=== PATIENT | female | born 1965 | race Caucasian/White ===

== ENCOUNTER 2017-03-20 10:34 | Emergency (ER) | payer OTHER ==
[~2017-03-20] VITALS: Ht 165.1 cm; Wt 124.0 kg
[~2017-03-20 10:34] MED LIST: AMPYRA10 MG PO; BACLOFEN10 MG PO; BANOPHEN50 MG PO; BISACODYL5 MG PO; BUSPAR7.5 MG PO; CELEXA10 MG PO; CLONAZEPAM0.5 MG PO; CYMBALTA30 MG PO; DITROPAN5 MG PO; DOCUSATE SODIU100 MG PO; DULCOLAX5 MG PO; GABAPENTIN100 M1 PO; GABAPENTIN600 MG PO; GLYCERIN ADULT PR; HYDROCODON-ACE1 EACH PO; KEFLEX500 MG PO; KETOCONAZOLE60 GM TP; KLONOPIN0.5 M1 PO; LANTUS 3 M100 UNITS/ SC; LANTUS 3 M100 UNITS1 SC; LANTUS100 UNIT/1 SQ; LASIX20 MG PO; LEVEMIR100 UNIT/2 SC; LIDOCAINE700 MG TD; LISINOPRIL20 MG PO; LOVENOX40 MG/0.4 SC; MILK OF MAGN PO; MIRALAX255 GM PO; MORPHINE SULFAT30 M2 PO; MYRBETRIQ25 MG PO; MYRBETRIQ50 MG PO; Metamucil Packet PO; NEURONTIN300 MG PO; NOVOLOG 10100 UNITS/ SC; NOVOLOG PE100 UNITS/ SC; NUVIGIL150 MG PO; OXYBUTYNIN CHLOR5 MG PO; POLYETHYLENE G255 GM PO; POLYETHYLENE GL17 GM PO; PRAVACHOL40 MG PO; PRAVASTATIN SOD40 MG PO; PREDNISONE10 MG PO; PROTONIX40 MG PO; REBIF44 MCG/0.5 SC; SENNA PLUS TAB1 EACH PO; SENNA8.6 MG PO; SENOKOT S,PE1 TABLET PO; THERAGRAN1 TABLET PO; TIZANIDINE HCL2 MG PO; TIZANIDINE HCL4 MG PO; TRAMADOL HCL50 MG PO; TYLENOL REGULA325 MG PO; TYSABRI300 MG/15 IV; VICODIN PO; VITAMIN D-3 401 EACH PO; ZANTAC150 MG PO; ZEASORB POWDE70.9 GM TP; ZESTRIL,PRINIVI20 MG PO; ZOLPIDEM TARTRAT5 MG PO; [UNRECOGNIZED DRUG - OTHER]; [UNRECOGNIZED DRUG - OTHER] SQ; mybetriq
[2017-03-20 11:41] LABS: HEMATOCRIT 43.4 % (36.0-46.0); MCH 28.7 PG (29.0-34.0); MCHC 32.3 G/DL (30.0-36.0); MCV 88.9 FL (83-99); MEAN PLAT.VOLUME 11.3 uM^3 (9.5-12.4); NRBC (%) 0.7 /100 WBC (0-0); PLATELET COUNT 159 K/uL (156-360); RBC DIS.WIDTH-CV 14.4 % (11.8-14.6); RBC DIS.WIDTH-SD 46.3 % (39-53); RED BLOOD COUNT 4.88 M/uL (3.80-5.20); WHITE BLOOD COUNT 10.9 K/uL (4.1-10.2)
[2017-03-20 12:38] LABS: CHLORIDE 105 mEq/L (99-109); POTASSIUM 4.9 mEq/L (3.7-5.4); SODIUM 140 mEq/L (136-147)
[2017-03-20 12:41] LABS: GLUCOSE 249 mg/dL (70-99)
[2017-03-20 12:42] LABS: ANION GAP 10 MEQ/L (2-14)
[2017-03-20 12:43] LABS: TOTAL BILIRUBIN 0.3 mg/dL (0.0-1.0)
[2017-03-20 12:44] LABS: ALKALINE PHOSPHATASE 87 IU/L (3-129); GFR ESTIMATE (CALCULATED) > 59 mL/min/
[2017-03-20 12:45] LABS: UREA NITROGEN (BUN) 11 mg/dL (9-23)
[2017-03-20 13:17] LABS: C-REACTIVE PROTEIN 6.7 MG/L (0-10); SAMPLE HEMOLYSIS CHECK 0; SAMPLE ICTERIC CHECK 0; SAMPLE LIPEMIA CHECK 0
[2017-03-20 15:35] VITALS: BP 125/80
== END 2017-03-20 15:36 | disposition home or self-care (01) ==
LOC: EME 10:34
PROVIDERS: Physician Assistant
DX: R53.1 Weakness (principal); G35 Multiple sclerosis; E11.9 Type 2 diabetes mellitus without complications; Z79.4 Long term (current) use of insulin; Z88.6 Allergy status to analgesic agent; Z88.8 Allergy status to other drugs, medicaments and biological substances
CPT/HCPCS: 80053; 81003; 85027; 86140; 99281; 99284; J2930; J7030

== ENCOUNTER 2017-03-25 15:55 | Inpatient (IN) | payer OTHER ==
[~2017-03-25] VITALS: Ht 165.1 cm; Wt 121.4 kg
[2017-03-25 17:03] LABS: EOSINOPHIL (%) 3.7 % (0-5); EOSINOPHIL COUNT 0.5 K/uL (0-0.3); HEMATOCRIT 43.6 % (36.0-46.0); IMMATURE GRANULOCYTE (%) 1.1 % (0.0-0.7); IMMATURE GRANULOCYTE COUNT 0.2 K/uL; INSTRUMENT ABS NEUTROPHIL CT 7.8 K/uL; LYMPHOCYTE COUNT 4.6 K/uL (1.0-2.8); MCV 87.9 FL (83-99); MEAN PLAT.VOLUME 11.3 uM^3 (9.5-12.4); MONOCYTE (%) 5.3 % (3-12); MONOCYTE COUNT 0.7 K/uL (0-0.8); NEUTROPHIL (%) 56.1 % (45-76); NEUTROPHIL COUNT 7.8 K/uL (1.8-6.4); NRBC (%) 0.8 /100 WBC (0-0); PLATELET COUNT 164 K/uL (156-360); RBC DIS.WIDTH-CV 14.2 % (11.8-14.6); RBC DIS.WIDTH-SD 45.5 % (39-53); RED BLOOD COUNT 4.96 M/uL (3.80-5.20); WHITE BLOOD COUNT 13.9 K/uL (4.1-10.2)
[2017-03-25 17:11] LABS: CHLORIDE 103 mEq/L (99-109); POTASSIUM 4.3 mEq/L (3.7-5.4); SODIUM 139 mEq/L (136-147)
[2017-03-25 17:13] LABS: GLUCOSE 175 mg/dL (70-99)
[2017-03-25 17:14] LABS: ANION GAP 9 MEQ/L (2-14)
[2017-03-25 17:17] LABS: GFR ESTIMATE (CALCULATED) > 59 mL/min/
[2017-03-25 17:18] LABS: UREA NITROGEN (BUN) 10 mg/dL (9-23)
[2017-03-25 17:23] LABS: TROP-I INTERPRETATION NEGATIVE; TROPONIN-I < 0.01 ng/mL (0.0-0.30)
[2017-03-25 17:56] LABS: ADD MIUA? YES; BILIRUBIN NEGATIVE; BLOOD NEGATIVE; COLOR YELLOW ((YELLOW)); GLUCOSE (STRIP) NEGATIVE; KETONES NEGATIVE; LEUKOCYTES NEGATIVE; NITRITE NEGATIVE; PROTEIN (STRIP) NEGATIVE; SPECIFIC GRAVITY 1.013 (1.000-1.030)
[2017-03-25 18:00] LABS: BACTERIA NONE SEEN /HPF; EPITHELIAL CELLS RARE /HPF; MUCUS 2+ /LPF; RED BLOOD CELLS 0-5 /HPF (0-5); UCUL ADDED? NO; WHITE BLOOD CELLS 0-5 /HPF (0-5)
[2017-03-25] MEDS ORDERED: ZANAFLEX4 M1 PO (21:51)
[2017-03-25] MEDS ORDERED: BACLOFEN20 MG PO (21:51)
[2017-03-25] MEDS ORDERED: ARYMO ER30 MG PO (21:52)
[2017-03-25] MEDS ORDERED: MIRALAX255 GM PO (21:54)
[2017-03-25] MEDS ORDERED: LANTUS 10100 UNITS/ SC (21:55)
[2017-03-25] MEDS ORDERED: ASPERCREME1 EACH TP (21:57)
[2017-03-25] MEDS ORDERED: ZYRTEC10 M3 PO (21:58)
[2017-03-25] MEDS ORDERED: IBUPROFEN800 MG PO (21:59)
[2017-03-25 22:53] VITALS: BP 146/63
[2017-03-25 23:39] LABS: POINT-OF-CARE METER ID UU13113700
[2017-03-26 03:38] VITALS: BP 147/67
[2017-03-26 08:32] LABS: POINT-OF-CARE METER ID UU13113831
[2017-03-26 08:37] VITALS: BP 133/61
[2017-03-26 11:15] VITALS: BP 125/64
[2017-03-26 14:03] LABS: POINT-OF-CARE METER ID UU13113831
[2017-03-26 16:00] VITALS: BP 121/56
[2017-03-26 18:16] LABS: POINT-OF-CARE METER ID UU13113700
[2017-03-26 19:30] VITALS: BP 140/66
[2017-03-26 21:07] LABS: POINT-OF-CARE METER ID UU13113831
[2017-03-27] VITALS (7 sets, daily range): BP systolic 129–176; BP diastolic 64–80
[2017-03-27 09:03] LABS: POINT-OF-CARE METER ID UU13113831
[2017-03-27 12:51] LABS: POINT-OF-CARE METER ID UU13113831
[2017-03-27 18:35] LABS: POINT-OF-CARE METER ID UU13113831
[2017-03-27 22:10] LABS: POINT-OF-CARE METER ID UU14162513
[2017-03-28 00:15] VITALS: BP 148/67
[2017-03-28 06:16] LABS: ANION GAP 10 MEQ/L (2-14); CHLORIDE 103 MEQ/L (99-109); GFR ESTIMATE (CALCULATED) > 59 mL/min/; POTASSIUM 4.1 MEQ/L (3.7-5.4); SAMPLE HEMOLYSIS CHECK 0; SAMPLE ICTERIC CHECK 0; SAMPLE LIPEMIA CHECK 0; SODIUM 138 MEQ/L (136-147); UREA NITROGEN (BUN) 15 mg/dL (9-23)
[2017-03-28 06:20] LABS: GLUCOSE 367 mg/dL (70-99)
[2017-03-28 07:07] LABS: POINT-OF-CARE METER ID UU13113831
[2017-03-28 08:00] VITALS: BP 160/72
[2017-03-28 12:21] VITALS: BP 185/81
[2017-03-28 16:00] VITALS: BP 183/76
[2017-03-28 17:40] LABS: POINT-OF-CARE METER ID UU13113831
[2017-03-28 19:00] VITALS: BP 126/76
[2017-03-28 20:59] LABS: POINT-OF-CARE METER ID UU13113831; POINT-OF-CARE USER ID 609231305
[2017-03-28 22:24] LABS: POINT-OF-CARE METER ID UU13113831
[2017-03-29 03:55] VITALS: BP 139/72
[2017-03-29 07:55] VITALS: BP 161/70
[2017-03-29 08:22] LABS: POINT-OF-CARE METER ID UU13113700
[2017-03-29] MEDS ORDERED: NICOTINE PATCH1 EAC2 TD (10:44)
[2017-03-29] MEDS ORDERED: ARYMO ER30 MG PO (10:44)
[2017-03-29] MEDS ORDERED: CLONAZEPAM0.5 MG PO (10:44)
[2017-03-29] MEDS ORDERED: PREDNISONE10 MG PO (10:44)
[2017-03-29 11:27] VITALS: BP 133/76
[2017-03-29 12:45] LABS: POINT-OF-CARE METER ID UU13113700
== END 2017-03-29 17:20 | DRG 59 ==
LOC: EME 15:55 → EDOF 21:09 → 5WEST 21:09 → EDOF 21:09 → 5WEST 22:21
PROVIDERS: Emergency Medicine; Hospitalist
DX: G35 Multiple sclerosis (principal); Z68.41 Body mass index [BMI] 40.0-44.9, adult; E11.65 Type 2 diabetes mellitus with hyperglycemia; I11.0 Hypertensive heart disease with heart failure; E66.01 Morbid (severe) obesity due to excess calories; I50.9 Heart failure, unspecified; F17.200 Nicotine dependence, unspecified, uncomplicated; E78.5 Hyperlipidemia, unspecified; M48.00 Spinal stenosis, site unspecified; R29.6 Repeated falls; G89.4 Chronic pain syndrome; N39.41 Urge incontinence; F12.90 Cannabis use, unspecified, uncomplicated; T38.0X5A Adverse effect of glucocorticoids and synthetic analogues, initial encounter; I25.10 Atherosclerotic heart disease of native coronary artery without angina pectoris; Z79.4 Long term (current) use of insulin; Z79.891 Long term (current) use of opiate analgesic; Z79.899 Other long term (current) drug therapy; Z96.612 Presence of left artificial shoulder joint; Z91.11 Patient's noncompliance with dietary regimen
CPT/HCPCS: 70450; 71010; 80048; 81003; 82948; 84484; 85025; 93005; 97530 GP; 99281; 99285; G0378; G8978 GP CM; G8979 GP CL; G8987 GO CM; G8988 GO CL; J1650; J1815; J2930; J7030; J7040; J7050

== ENCOUNTER 2017-12-29 17:00 | Inpatient (IN) | payer OTHER ==
[~2017-12-29] VITALS: Ht 165.1 cm; Wt 126.9 kg
[~2017-12-29 17:00] MED LIST changes: +ARYMO ER30 MG PO; +ASPERCREME1 EACH TP; +BACLOFEN20 MG PO; +IBUPROFEN800 MG PO; +LANTUS 10100 UNITS/ SC; +NICOTINE PATCH1 EAC2 TD; +ZANAFLEX4 M1 PO; +ZYRTEC10 M3 PO
[2017-12-29 17:50] LABS: HEMATOCRIT 44.9 % (36.0-46.0); HEMOGLOBIN 15.1 G/DL (11.9-15.5); MCHC 33.6 G/DL (30.0-36.0); MCV 92.2 FL (83-99); RBC DIS.WIDTH-SD 40.7 % (39-53); RED BLOOD COUNT 4.87 M/uL (3.80-5.20); WHITE BLOOD COUNT 6.9 K/uL (4.1-10.2)
[2017-12-29 17:56] LABS: PLATELET COUNT 90 K/uL (156-360)
[2017-12-29 18:01] LABS: CHLORIDE 104 mEq/L (99-109); POTASSIUM 3.9 mEq/L (3.7-5.4); SODIUM 143 mEq/L (136-147)
[2017-12-29 18:03] LABS: GLUCOSE 152 mg/dL (70-99)
[2017-12-29 18:06] LABS: CREATININE 0.7 mg/dL (0.6-1.3); GFR ESTIMATE (CALCULATED) > 59 mL/min/
[2017-12-29 18:07] LABS: UREA NITROGEN (BUN) 13 mg/dL (9-23)
[2017-12-29] MEDS ORDERED: VOLTAREN 1% GE100 GM TP (21:50)
[2017-12-29] MEDS ORDERED: OCREVUS300 MG/10 IV (21:51)
[2017-12-29] MEDS ORDERED: MYRBETRIQ50 MG PO (21:52)
[2017-12-29 22:16] LABS: THYROTROPIN (TSH) 7.3 MIU/L (0.4-5.5)
[2017-12-30 03:06] VITALS: BP 129/77
[2017-12-30 04:07] LABS: APPEARANCE CLEAR ((CLEAR)); BILIRUBIN NEGATIVE; BLOOD NEGATIVE; COLOR YELLOW ((YELLOW)); GLUCOSE (STRIP) NEGATIVE; KETONES NEGATIVE; LEUKOCYTES NEGATIVE; NITRITE NEGATIVE; PROTEIN (STRIP) NEGATIVE; SPECIFIC GRAVITY 1.019 (1.000-1.030); UCUL ADDED? NO
[2017-12-30 07:16] VITALS: BP 128/84
[2017-12-30 10:01] LABS: HEMATOCRIT 44.9 % (36.0-46.0); HEMOGLOBIN 15.2 G/DL (11.9-15.5); MCH 30.6 PG (29.0-34.0); MCHC 33.9 G/DL (30.0-36.0); MCV 90.3 FL (83-99); RBC DIS.WIDTH-CV 11.8 % (11.8-14.6); RBC DIS.WIDTH-SD 38.5 % (39-53); RED BLOOD COUNT 4.97 M/uL (3.80-5.20); WHITE BLOOD COUNT 6.6 K/uL (4.1-10.2)
[2017-12-30 10:05] LABS: PLATELET COUNT 186 K/uL (156-360)
[2017-12-30 10:54] LABS: CHLORIDE 103 MEQ/L (99-109); CREATININE 0.7 MG/DL (0.6-1.3); GFR ESTIMATE (CALCULATED) > 59 mL/min/; POTASSIUM 4.4 MEQ/L (3.7-5.4); SODIUM 138 MEQ/L (136-147); UREA NITROGEN (BUN) 14 mg/dL (9-23)
[2017-12-30 10:58] LABS: GLUCOSE 427 mg/dL (70-99)
[2017-12-30 12:06] VITALS: BP 126/80
[2017-12-30 15:14] VITALS: BP 122/57
[2017-12-31 00:05] VITALS: BP 150/67
[2017-12-31 07:02] LABS: HEMATOCRIT 39.7 % (36.0-46.0); MCH 29.7 PG (29.0-34.0); MCHC 33.2 G/DL (30.0-36.0); MCV 89.2 FL (83-99); PLATELET COUNT 163 K/uL (156-360); RBC DIS.WIDTH-CV 11.8 % (11.8-14.6); RBC DIS.WIDTH-SD 38.3 % (39-53); RED BLOOD COUNT 4.45 M/uL (3.80-5.20); WHITE BLOOD COUNT 11.7 K/uL (4.1-10.2)
[2017-12-31 07:03] LABS: HEMOGLOBIN 13.2 G/DL (11.9-15.5)
[2017-12-31 07:28] LABS: CHLORIDE 105 MEQ/L (99-109); CREATININE 0.6 MG/DL (0.6-1.3); GFR ESTIMATE (CALCULATED) > 59 mL/min/; GLUCOSE 337 mg/dL (70-99); SODIUM 140 MEQ/L (136-147); UREA NITROGEN (BUN) 17 mg/dL (9-23)
[2017-12-31 07:45] VITALS: BP 133/62
[2017-12-31 16:13] VITALS: BP 137/65
[2018-01-01] VITALS: BP 177/77
[2018-01-01 07:38] VITALS: BP 146/70
[2018-01-01 16:14] VITALS: BP 162/75
[2018-01-01 23:51] VITALS: BP 167/76
[2018-01-02 08:05] VITALS: BP 174/80
[2018-01-02] MEDS ORDERED: DOCUSATE SODIU100 MG PO (13:24)
[2018-01-02] MEDS ORDERED: MEDROL DOSEPAK4 MG PO (13:24)
[2018-01-02 16:00] VITALS: BP 173/83
== END 2018-01-02 16:11 | DRG 59 ==
LOC: EME 17:00 → EDOF 23:41 → 5SOUTH 23:41 → ENRESERV 23:42 → 5SOUTH 12-30 01:32 → ENPENDDIS 01-02 13:30 → 5SOUTH 01-02 16:11
PROVIDERS: Emergency Medicine; Hospitalist; Physician Assistant Medical
DX: G35 Multiple sclerosis (principal); F11.20 Opioid dependence, uncomplicated; E66.01 Morbid (severe) obesity due to excess calories; D69.6 Thrombocytopenia, unspecified; E03.9 Hypothyroidism, unspecified; K59.00 Constipation, unspecified; Z96.612 Presence of left artificial shoulder joint; F17.210 Nicotine dependence, cigarettes, uncomplicated; E78.5 Hyperlipidemia, unspecified; F12.90 Cannabis use, unspecified, uncomplicated; S31.000A Unspecified open wound of lower back and pelvis without penetration into retroperitoneum, initial encounter; R32 Unspecified urinary incontinence; I25.10 Atherosclerotic heart disease of native coronary artery without angina pectoris; I50.9 Heart failure, unspecified; I11.0 Hypertensive heart disease with heart failure; Z68.42 Body mass index [BMI] 45.0-49.9, adult; M48.00 Spinal stenosis, site unspecified; G89.29 Other chronic pain; E11.9 Type 2 diabetes mellitus without complications; M50.20 Other cervical disc displacement, unspecified cervical region; F41.9 Anxiety disorder, unspecified
CPT/HCPCS: 80048; 81003; 82948; 84439; 84443; 85027; 97530 GO; 97530 GP; 99281; 99285; J1815; J2930; J7030; J7040; J7050

== ENCOUNTER 2018-03-24 14:24 | Emergency (ER) | payer OTHER ==
[~2018-03-24] VITALS: Ht 165.1 cm; Wt 149.4 kg
[~2018-03-24 14:24] MED LIST changes: +MEDROL DOSEPAK4 MG PO; +OCREVUS300 MG/10 IV; +VOLTAREN 1% GE100 GM TP
[2018-03-24 14:37] VITALS: BP 125/73
[2018-03-24 15:08] LABS: HEMATOCRIT 36.4 % (36.0-46.0); HEMOGLOBIN 12.1 G/DL (11.9-15.5); MCH 30.8 PG (29.0-34.0); MCHC 33.2 G/DL (30.0-36.0); MCV 92.6 FL (83-99); PLATELET COUNT 146 K/uL (156-360); RBC DIS.WIDTH-CV 13.7 % (11.8-14.6); RBC DIS.WIDTH-SD 46.3 % (39-53); RED BLOOD COUNT 3.93 M/uL (3.80-5.20); WHITE BLOOD COUNT 7.1 K/uL (4.1-10.2)
[2018-03-24 15:19] LABS: CHLORIDE 106 mEq/L (99-109); POTASSIUM 4.2 mEq/L (3.7-5.4); SODIUM 141 mEq/L (136-147)
[2018-03-24 15:20] LABS: GLUCOSE 208 mg/dL (70-99)
[2018-03-24 15:24] LABS: CREATININE 0.8 mg/dL (0.6-1.3); GFR ESTIMATE (CALCULATED) > 59 mL/min/
[2018-03-24 15:25] LABS: UREA NITROGEN (BUN) 18 mg/dL (9-23)
[2018-03-24] MEDS ORDERED: VALACYCLOVIR1000 MG PO (16:47)
[2018-03-24 17:24] LABS: APPEARANCE CLOUDY ((CLEAR)); BILIRUBIN NEGATIVE; BLOOD LARGE; GLUCOSE (STRIP) NEGATIVE; KETONES NEGATIVE; LEUKOCYTES TRACE; NITRITE NEGATIVE; PROTEIN (STRIP) 100; SPECIFIC GRAVITY 1.018 (1.000-1.030); UROBILINOGEN 0.2 MG/DL (0.2-1.0)
[2018-03-24 17:38] LABS: COLOR BLOODY ((YELLOW))
[2018-03-24 17:44] LABS: RED BLOOD CELLS TNTC /HPF (0-5)
[2018-03-24 17:45] LABS: UCUL ADDED? YES
== END 2018-03-24 18:59 ==
LOC: EME 14:24
PROVIDERS: Emergency Medicine
DX: R31.9 Hematuria, unspecified (principal); N39.0 Urinary tract infection, site not specified; B96.20 Unspecified Escherichia coli [E. coli] as the cause of diseases classified elsewhere; I10 Essential (primary) hypertension; E11.9 Type 2 diabetes mellitus without complications; K21.9 Gastro-esophageal reflux disease without esophagitis; E78.5 Hyperlipidemia, unspecified; G35 Multiple sclerosis; G62.9 Polyneuropathy, unspecified; F32.9 Major depressive disorder, single episode, unspecified; F41.9 Anxiety disorder, unspecified; F17.200 Nicotine dependence, unspecified, uncomplicated; Z79.4 Long term (current) use of insulin; Z87.440 Personal history of urinary (tract) infections; Z87.39 Personal history of other diseases of the musculoskeletal system and connective tissue; Z98.890 Other specified postprocedural states; Z88.5 Allergy status to narcotic agent; Z88.8 Allergy status to other drugs, medicaments and biological substances
CPT/HCPCS: 80048; 81003; 85027; 87077; 87086; 87186; 99281; 99284

== ENCOUNTER 2018-04-17 22:44 | Emergency (ER) | payer OTHER ==
[~2018-04-17] VITALS: Ht 165.1 cm; Wt 148.4 kg
[~2018-04-17 22:44] MED LIST changes: +VALACYCLOVIR1000 MG PO
[2018-04-17 23:36] LABS: HEMATOCRIT 37.4 % (36.0-46.0); HEMOGLOBIN 12.2 G/DL (11.9-15.5); MCH 30.8 PG (29.0-34.0); MCHC 32.6 G/DL (30.0-36.0); MCV 94.4 FL (83-99); PLATELET COUNT 157 K/uL (156-360); RBC DIS.WIDTH-CV 13.7 % (11.8-14.6); RED BLOOD COUNT 3.96 M/uL (3.80-5.20); WHITE BLOOD COUNT 7.5 K/uL (4.1-10.2)
[2018-04-17 23:43] LABS: INTER. NORMALIZED RATIO 0.9
[2018-04-17 23:45] LABS: ALBUMIN 3.7 g/dL (3.2-4.8); CHLORIDE 101 mEq/L (99-109); POTASSIUM 3.9 mEq/L (3.7-5.4); SODIUM 140 mEq/L (136-147)
[2018-04-17 23:46] LABS: PTT 30.4 SEC (25-37)
[2018-04-17 23:47] LABS: GLUCOSE 223 mg/dL (70-99)
[2018-04-17 23:49] LABS: TOTAL BILIRUBIN 0.2 mg/dL (0.0-1.0)
[2018-04-17 23:51] LABS: ALKALINE PHOSPHATASE 93 IU/L (3-129); CREATININE 0.7 mg/dL (0.6-1.3); GFR ESTIMATE (CALCULATED) > 59 mL/min/
[2018-04-17 23:52] LABS: UREA NITROGEN (BUN) 17 mg/dL (9-23)
[2018-04-17 23:53] LABS: AST (GOT) 14 IU/L (2-34)
[2018-04-17 23:54] LABS: ALT (GPT) 19 IU/L (3-49); LIPASE 37 U/L (1.0-51.0)
[2018-04-18 00:25] LABS: APPEARANCE TURBID ((CLEAR)); BILIRUBIN NEGATIVE; BLOOD LARGE; COLOR YELLOW ((YELLOW)); GLUCOSE (STRIP) 150; KETONES NEGATIVE; LEUKOCYTES MODERATE; NITRITE POSITIVE; PROTEIN (STRIP) 100
[2018-04-18 00:44] LABS: AMORPHOUS PHOSPHATE CRYSTALS 3+; BACTERIA 3+ /HPF; EPITHELIAL CELLS 1+ /HPF; MUCUS NONE SEEN /LPF; RED BLOOD CELLS 0-5 /HPF (0-5); UCUL ADDED? YES; WHITE BLOOD CELLS TNTC /HPF (0-5)
[2018-04-18] MEDS ORDERED: PYRIDIUM200 MG PO (00:44)
[2018-04-18] MEDS ORDERED: BACTRIM,SEPT1 TABLET PO (00:44)
[2018-04-18 00:45] LABS: TRIPLE PHOSPHATE CRYSTALS 2+ /HPF
[2018-04-18 03:38] VITALS: BP 161/81
== END 2018-04-18 03:45 | disposition home or self-care (01) ==
LOC: EME → EDBD 22:44 → EME 22:44
PROVIDERS: Emergency Medicine
DX: N30.01 Acute cystitis with hematuria (principal); G35 Multiple sclerosis; I10 Essential (primary) hypertension; E78.5 Hyperlipidemia, unspecified; K21.9 Gastro-esophageal reflux disease without esophagitis; F41.9 Anxiety disorder, unspecified; F32.9 Major depressive disorder, single episode, unspecified; Z87.440 Personal history of urinary (tract) infections; F17.200 Nicotine dependence, unspecified, uncomplicated
CPT/HCPCS: 74176; 80053; 81003; 83690; 85027; 85610; 85730; 87077; 87086; 87186; 99281; 99284

== ENCOUNTER 2018-04-24 11:59 | Inpatient (IN) | payer OTHER ==
[~2018-04-24] VITALS: Ht 165.1 cm; Wt 140.9 kg
[~2018-04-24 11:59] MED LIST changes: +BACTRIM,SEPT1 TABLET PO; +PYRIDIUM200 MG PO
[2018-04-24 13:12] LABS: BASOPHIL (%) 0.1 % (0-1); EOSINOPHIL (%) 0 % (0-5); HEMATOCRIT 37.7 % (36.0-46.0); HEMOGLOBIN 12.2 G/DL (11.9-15.5); IMMATURE GRANULOCYTE (%) 0.8 % (0.0-0.7); LYMPHOCYTE (%) 2.4 % (15-42); LYMPHOCYTE COUNT 0.5 K/uL (1.0-2.8); MCH 30.5 PG (29.0-34.0); MCHC 32.4 G/DL (30.0-36.0); MCV 94.3 FL (83-99); MONOCYTE (%) 2.3 % (3-12); MONOCYTE COUNT 0.4 K/uL (0-0.8); NEUTROPHIL (%) 94.4 % (45-76); NEUTROPHIL COUNT 17.5 K/uL (1.8-6.4); PLATELET COUNT 151 K/uL (156-360); RBC DIS.WIDTH-CV 13.2 % (11.8-14.6); RBC DIS.WIDTH-SD 45.9 % (39-53); WHITE BLOOD COUNT 18.5 K/uL (4.1-10.2)
[2018-04-24 13:24] LABS: ALBUMIN 3.7 g/dL (3.2-4.8); CHLORIDE 102 mEq/L (99-109); POTASSIUM 4.3 mEq/L (3.7-5.4); SODIUM 137 mEq/L (136-147)
[2018-04-24 13:26] LABS: GLUCOSE 256 mg/dL (70-99)
[2018-04-24 13:30] LABS: ALKALINE PHOSPHATASE 79 IU/L (3-129); CREATININE 0.9 mg/dL (0.6-1.3); GFR ESTIMATE (CALCULATED) > 59 mL/min/
[2018-04-24 13:31] LABS: UREA NITROGEN (BUN) 17 mg/dL (9-23)
[2018-04-24 13:32] LABS: AST (GOT) 16 IU/L (2-34); DIRECT BILIRUBIN 0.2 mg/dL (0.0-0.3)
[2018-04-24 13:33] LABS: ALT (GPT) 17 IU/L (3-49)
[2018-04-24 13:46] LABS: TOTAL BILIRUBIN 0.6 mg/dL (0.0-1.0); TOTAL PROTEIN 7.2 g/dL (6.4-8.3)
[2018-04-24 13:50] LABS: APPEARANCE CLOUDY ((CLEAR)); BILIRUBIN NEGATIVE; BLOOD MODERATE; COLOR AMBER ((YELLOW)); GLUCOSE (STRIP) 50; KETONES 20; LEUKOCYTES MODERATE; NITRITE POSITIVE; PROTEIN (STRIP) 30; SPECIFIC GRAVITY 1.018 (1.000-1.030)
[2018-04-24 14:01] LABS: BACTERIA 1+ /HPF; EPITHELIAL CELLS RARE /HPF; MUCUS TRACE /LPF; RED BLOOD CELLS TNTC /HPF (0-5); UCUL ADDED? YES; WHITE BLOOD CELLS TNTC /HPF (0-5)
[2018-04-24] MEDS ORDERED: FLONASE16 G1 BOTH NARES (14:54)
[2018-04-24] MEDS ORDERED: NEURONTIN800 MG PO (14:55)
[2018-04-24] MEDS ORDERED: GENTAMICIN40 MG/1 ML IM (14:57)
[2018-04-24] MEDS ORDERED: MOTRIN400 MG PO (14:58)
[2018-04-24] MEDS ORDERED: LANTUS 10100 UNITS/ SC ×2 (14:59)
[2018-04-24] MEDS ORDERED: MELATONIN3 MG PO (15:00)
[2018-04-24] MEDS ORDERED: LASIX20 MG PO (15:00)
[2018-04-24] MEDS ORDERED: ZOCOR20 MG PO (15:01)
[2018-04-24] MEDS ORDERED: MIRALAX17 GM PO ×2 (15:01→15:11)
[2018-04-24] MEDS ORDERED: LEVO-T50 MCG PO (15:01)
[2018-04-24] MEDS ORDERED: VITAMIN B-12500 MC5 SL (15:02)
[2018-04-24] MEDS ORDERED: XARELTO15 MG PO (15:02)
[2018-04-24] MEDS ORDERED: VITAMIN D31000 UNI2 PO (15:03)
[2018-04-24] MEDS ORDERED: COLACE100 MG PO (15:03)
[2018-04-24] MEDS ORDERED: SENNA8.6 MG PO (15:04)
[2018-04-24] MEDS ORDERED: NEURONTIN600 MG PO (15:04)
[2018-04-24] MEDS ORDERED: MS CONTIN,ORAMO30 MG PO (15:05)
[2018-04-24] MEDS ORDERED: PYRIDIUM200 MG PO (15:06)
[2018-04-24] MEDS ORDERED: BACLOFEN20 MG PO (15:07)
[2018-04-24] MEDS ORDERED: NOVOLOG 10100 UNITS/ SC (15:08)
[2018-04-24] MEDS ORDERED: ATIVAN0.5 MG PO (15:08)
[2018-04-24] MEDS ORDERED: DUONEB 2.5-0.5 M3 ML AEROSOL (15:09)
[2018-04-24] MEDS ORDERED: GLUCOSE GEL38 GM PO (15:10)
[2018-04-24] MEDS ORDERED: OCREVUS300 MG/10 IV (15:11)
[2018-04-24] MEDS ORDERED: TYLENOL REGULA325 MG PO (15:13)
[2018-04-24] MEDS ORDERED: ZANAFLEX4 M1 PO (15:13)
[2018-04-24 18:26] VITALS: BP 145/83
[2018-04-24 23:35] VITALS: BP 102/51
[2018-04-25 07:28] VITALS: BP 141/67
[2018-04-25 10:03] LABS: BASOPHIL (%) 0.2 % (0-1); EOSINOPHIL (%) 0 % (0-5); HEMATOCRIT 33.5 % (36.0-46.0); HEMOGLOBIN 10.9 G/DL (11.9-15.5); IMMATURE GRANULOCYTE (%) 0.8 % (0.0-0.7); LYMPHOCYTE COUNT 0.9 K/uL (1.0-2.8); MCH 30.9 PG (29.0-34.0); MCHC 32.5 G/DL (30.0-36.0); MCV 94.9 FL (83-99); MONOCYTE (%) 4.2 % (3-12); MONOCYTE COUNT 0.7 K/uL (0-0.8); NEUTROPHIL (%) 89.8 % (45-76); NEUTROPHIL COUNT 15.5 K/uL (1.8-6.4); PLATELET COUNT 151 K/uL (156-360); RBC DIS.WIDTH-CV 13.2 % (11.8-14.6); RBC DIS.WIDTH-SD 45.6 % (39-53); RED BLOOD COUNT 3.53 M/uL (3.80-5.20); WHITE BLOOD COUNT 17.3 K/uL (4.1-10.2)
[2018-04-25 15:41] VITALS: BP 99/52
[2018-04-25 23:59] VITALS: BP 122/58
[2018-04-26 07:58] VITALS: BP 137/65
[2018-04-26 09:49] LABS: BASOPHIL (%) 0.3 % (0-1); EOSINOPHIL (%) 0.2 % (0-5); HEMATOCRIT 31.5 % (36.0-46.0); IMMATURE GRANULOCYTE (%) 1.2 % (0.0-0.7); LYMPHOCYTE (%) 8.9 % (15-42); LYMPHOCYTE COUNT 0.8 K/uL (1.0-2.8); MCH 30.1 PG (29.0-34.0); MCHC 31.7 G/DL (30.0-36.0); MCV 94.9 FL (83-99); MONOCYTE (%) 7.6 % (3-12); MONOCYTE COUNT 0.7 K/uL (0-0.8); NEUTROPHIL (%) 81.8 % (45-76); NEUTROPHIL COUNT 7.8 K/uL (1.8-6.4); PLATELET COUNT 138 K/uL (156-360); RBC DIS.WIDTH-CV 13.2 % (11.8-14.6); RBC DIS.WIDTH-SD 46.1 % (39-53); RED BLOOD COUNT 3.32 M/uL (3.80-5.20); WHITE BLOOD COUNT 9.5 K/uL (4.1-10.2)
[2018-04-26 10:12] LABS: CHLORIDE 100 MEQ/L (99-109); CREATININE 0.8 MG/DL (0.6-1.3); GFR ESTIMATE (CALCULATED) > 59 mL/min/; GLUCOSE 192 mg/dL (70-99); POTASSIUM 3.8 MEQ/L (3.7-5.4); SODIUM 137 MEQ/L (136-147); UREA NITROGEN (BUN) 14 mg/dL (9-23)
[2018-04-26 15:28] VITALS: BP 124/56
[2018-04-26] MEDS ORDERED: DICLOFENAC SOD100 G1 TP (21:20)
[2018-04-27] VITALS: BP 130/59
[2018-04-27 05:52] LABS: BASOPHIL (%) 0.4 % (0-1); EOSINOPHIL (%) 1.5 % (0-5); EOSINOPHIL COUNT 0.1 K/uL (0-0.3); HEMATOCRIT 29.6 % (36.0-46.0); HEMOGLOBIN 9.3 G/DL (11.9-15.5); IMMATURE GRANULOCYTE (%) 2.5 % (0.0-0.7); LYMPHOCYTE (%) 20.7 % (15-42); LYMPHOCYTE COUNT 1.4 K/uL (1.0-2.8); MCHC 31.4 G/DL (30.0-36.0); MCV 95.5 FL (83-99); MONOCYTE (%) 12.5 % (3-12); MONOCYTE COUNT 0.9 K/uL (0-0.8); NEUTROPHIL (%) 62.4 % (45-76); NEUTROPHIL COUNT 4.3 K/uL (1.8-6.4); PLATELET COUNT 149 K/uL (156-360); RBC DIS.WIDTH-CV 13.1 % (11.8-14.6); RBC DIS.WIDTH-SD 45.7 % (39-53); WHITE BLOOD COUNT 6.8 K/uL (4.1-10.2)
[2018-04-27 07:15] VITALS: BP 98/50
[2018-04-27] MEDS ORDERED: ZOSYN 3.3753.375 GM IV (11:45)
[2018-04-27 16:11] VITALS: BP 117/55
[2018-04-27 23:49] VITALS: BP 123/60
[2018-04-28 07:57] VITALS: BP 107/53
[2018-04-28] MEDS ORDERED: LORAZEPAM0.5 MG PO (16:00)
[2018-04-28] MEDS ORDERED: MORPHINE SULFAT15 M1 PO (16:00)
== END 2018-04-28 16:31 | DRG 690 ==
LOC: EME 11:59 → EDOF 16:00 → 5SOUTH 16:00 → ENRESERV 16:25 → CANRESERV 16:25 → 5SOUTH 18:06
PROVIDERS: Emergency Medicine; Internal Medicine; Physician Assistant
DX: N30.91 Cystitis, unspecified with hematuria (principal); Z68.43 Body mass index [BMI] 50.0-59.9, adult; E66.01 Morbid (severe) obesity due to excess calories; G35 Multiple sclerosis; E78.5 Hyperlipidemia, unspecified; I10 Essential (primary) hypertension; Z96.612 Presence of left artificial shoulder joint; Z87.440 Personal history of urinary (tract) infections; F17.210 Nicotine dependence, cigarettes, uncomplicated; Z56.0 Unemployment, unspecified; B96.4 Proteus (mirabilis) (morganii) as the cause of diseases classified elsewhere; Z16.24 Resistance to multiple antibiotics; Z79.01 Long term (current) use of anticoagulants; E11.9 Type 2 diabetes mellitus without complications; E03.9 Hypothyroidism, unspecified; M48.00 Spinal stenosis, site unspecified; G89.4 Chronic pain syndrome; K59.00 Constipation, unspecified
CPT/HCPCS: 71045; 80048; 80076; 81003; 82948; 83605; 85025; 87040; 87086; 94799; 99281; 99285; J1335; J1650; J1815; J2270; J2405; J2543; J7030; J7050